=== PATIENT | male | born 1970 | race Two or more races ===

== ENCOUNTER 2018-07-09 15:07 | Emergency (ER) | payer MEDICAID ==
[~2018-07-09] VITALS: Ht 188 cm; Wt 100.0 kg
[2018-07-09 15:45] VITALS: Ht 188 cm; Wt 100.0 kg
[2018-07-09] MEDS ORDERED: BUSPAR10 MG PO (15:47)
[2018-07-09] MEDS ORDERED: BUPROPION HCL150 M1 PO (15:47)
[2018-07-09] MEDS ORDERED: DESERYL100 MG (15:47)
[2018-07-09] MEDS ORDERED: ROBAXIN-750750 MG PO (17:36)
[2018-07-09 18:03] VITALS: BP 133/74
== END 2018-07-09 18:03 | disposition home or self-care (01) ==
LOC: D.ER 15:07
DX: S39.012A Strain of muscle, fascia and tendon of lower back, initial encounter (principal); X50.0XXA Overexertion from strenuous movement or load, initial encounter; Y93.89 Activity, other specified; Y92.019 Unspecified place in single-family (private) house as the place of occurrence of the external cause; M62.830 Muscle spasm of back

== ENCOUNTER 2018-07-13 19:39 | Emergency (ER) | payer MEDICAID ==
[2018-07-09 15:45] VITALS: Ht 188 cm; Wt 81.8 kg
[~2018-07-13] VITALS: Ht 188 cm; Wt 81.8 kg
[~2018-07-13 19:39] MED LIST: BUPROPION HCL150 M1 PO; BUSPAR10 MG PO; DESERYL100 MG; ROBAXIN-750750 MG PO
[2018-07-13 22:00] LABS: APPEARANCE CLEAR (CLEAR); BILIRUBIN NEGATIVE (NEGATIVE); COLOR YELLOW (YELLOW); GLUCOSE NEGATIVE (NEGATIVE); KETONE NEGATIVE (NEGATIVE); NITRITE NEGATIVE (NEGATIVE); PROTEIN NEGATIVE (NEGATIVE); SPECIFIC GRAVITY 1.025 (1.005-1.020); UROBILINOGEN NORMAL (NORMAL)
[2018-07-13 22:47] LABS: BASOPHILS 0.4 % (0-2); EOSINOPHILS 2.1 % (0-7); HEMATOCRIT 48.9 % (42.0-54.0); IMMATURE GRANULOCYTES 0.1 % (0-5); LYMPHOCYTES 30.6 % (15-50); MCH 32.3 pg (26.0-34.0); MCHC 34.8 g/dL (31.0-37.0); MEAN PLATELET VOLUME 11.5 fL (7.4-10.4); MONOCYTES 10.5 % (2-11); NEUTROPHILS 56.3 % (40-80); RBC 5.26 10x6/uL (4.20-6.10); RDW 13.4 % (11.5-14.5); WBC 6.8 10x3/uL (4.8-10.8)
[2018-07-13 22:52] LABS: PLATELET COUNT 217 10x3/uL (130-400)
[2018-07-13 23:05] LABS: UDS - AMPHET POSITIVE QUAL (NEGATIVE); UDS - BARB NEGATIVE QUAL (NEGATIVE); UDS - BENZO NEGATIVE QUAL (NEGATIVE); UDS - COCAINE NEGATIVE QUAL (NEGATIVE); UDS - OPIATE NEGATIVE QUAL (NEGATIVE); UDS - PCP NEGATIVE QUAL (NEGATIVE); UDS - THC NEGATIVE QUAL (NEGATIVE)
[2018-07-13 23:12] LABS: ALBUMIN 3.3 g/dL (3.4-5.0); ALKALINE PHOSPHATASE 87 U/L (46-116); ALT (SGPT) 71 U/L (10-68); BILIRUBIN - TOTAL 0.28 mg/dL (0.2-1.3); CALC OSMOLALITY 275 mosm/kg (275-300); CALCIUM 8.7 mg/dL (8.5-10.1); CARBON DIOXIDE 25.8 mmol/L (21.0-32.0); CHLORIDE - SERUM 104 mmol/L (98-107); CREATININE - SERUM 0.9 mg/dL (0.6-1.3); GLUCOSE 85 mg/dL (74-106); POTASSIUM - SERUM 3.5 mmol/L (3.5-5.1); PROTEIN - SERUM 8.2 g/dL (6.4-8.2); SODIUM 139 mmol/L (136-145); UREA NITROGEN 11 mg/dL (7-18); eGFR NON AFRICAN AMERICAN > 90 mL/min (90-120)
[2018-07-14 02:40] VITALS: BP 123/58
== END 2018-07-14 02:41 ==
LOC: D.ER 19:39
PROVIDERS: Family Medicine
DX: R45.851 Suicidal ideations (principal)